=== PATIENT | female | born 1985 | race Caucasian/White ===

== ENCOUNTER 2022-11-11 10:30 | Inpatient (IN) | payer OTHER ==
[~2022-11-11] VITALS: Ht 160 cm; Wt 98.0 kg
[2022-11-11] MEDS ORDERED: PRETAB PO (11:11)
[2022-11-11] MEDS ORDERED: LACTATED RINGERS 500 ML IV SCH (11:15)
[2022-11-11] MEDS ORDERED: LACTATED RINGERS 1,000 ML IV SCH (11:15)
[2022-11-11] MEDS ORDERED: METHYLERGONOVINE 0.2 MG/ML AMP IM PRN ×2 (11:15→13:05)
[2022-11-11] MEDS ORDERED: CARBOPROST 250 MCG/ML AMP IM PRN (11:15)
[2022-11-11 11:55] VITALS: BP 126/69
[2022-11-11 12:07] LABS: BASOPHILS % (AUTO) 0.1 % (0.0-2.0); EOSINOPHILS % (AUTO) 0.4 % (0.0-4.0); HEMATOCRIT 37.6 % (36-48); HEMOGLOBIN 13.2 g/dL (12.0-16.0); LYMPHOCYTES # (AUTO) 1.3 K/uL (2.5-16.5); LYMPHOCYTES % (AUTO) 15.2 % (20.5-51.1); MEAN CORPUSCULAR HEMOGLOBIN 32 pg (27-31); MEAN CORPUSCULAR HGB CONC 35 g/dL (33-37); MEAN CORPUSCULAR VOLUME 90.6 fL (80-94); MONOCYTES # (AUTO) 0.6 K/uL (0.8-1.0); MONOCYTES % (AUTO) 7.3 % (1.7-9.3); NEUTROPHILS # (AUTO) 6.5 K/uL (1.8-7.7); PLATELET COUNT (AUTO) 146 K/uL (140-450); RED BLOOD CELL COUNT(AUTO) 4.15 MIL/uL (4.20-5.40); RED CELL DISTRIBUTION WIDTH 13.7 % (11.6-13.7); WHITE BLOOD COUNT (AUTO) 8.4 K/uL (4.8-10.8)
[2022-11-11] MEDS ORDERED: fentaNYL citrate 0.05 MG/ML VIAL ONE (12:10)
[2022-11-11] MEDS ORDERED: MORPHINE PRES FREE 10 MG/10 ML AMP IV ONE (12:10)
[2022-11-11 12:12] LABS: APPEARANCE,URINE CLEAR (CLEAR); BILIRUBIN,URINE NEGATIVE (NEGATIVE); BLOOD, URINE NEGATIVE (NEGATIVE); COLOR,URINE YELLOW (YELLOW); LEUKOCYTE ESTERASE ,URINE TRACE (NEGATIVE); NITRITE, URINE NEGATIVE (NEGATIVE); UGLUCOSE NEGATIVE (NEGATIVE)
[2022-11-11 12:27] LABS: ALBUMIN 3.1 g/dL (3.4-5.0); ANION GAP 14.2 (8-16); CARBON DIOXIDE 23.6 mmol/L (21-32); CREATININE 0.6 mg/dL (0.6-1.3); POTASSIUM 3.8 mmol/L (3.5-5.1); TOTAL BILIRUBIN 0.5 mg/dL (0.0-1.0)
[2022-11-11 12:33] LABS: PROTHROMBIN TIME 8.9 secs (10.8-13.4)
[2022-11-11] MEDS ORDERED: KETOROLAC 30 MG/ML VIAL IVP PRN (13:05)
[2022-11-11] MEDS ORDERED: oxyCODONE/APAP 5/325 MG 1 TAB TAB PO PRN ×2 (13:05)
[2022-11-11] MEDS ORDERED: TEMAZEPAM 15 MG CAP PO PRN (13:05)
[2022-11-11] MEDS ORDERED: MISOPROSTOL 200 MCG TAB ONE (13:07)
[2022-11-11] MEDS ORDERED: OXYTOCIN 20 UNITS/LR PREMIX 1,000 ML IV ONE ×2 (13:44→18:14)
[2022-11-11] MEDS ORDERED: diphenhydrAMINE 50 MG/ML VIAL IVP PRN ×2 (13:45)
[2022-11-11] MEDS ORDERED: NALOXONE 0.4 MG/ML VIAL IVP PRN ×3 (13:45)
[2022-11-11] MEDS ORDERED: KETOROLAC 60 MG/2 ML VIAL IM PRN (13:45)
[2022-11-11] MEDS ORDERED: ONDANSETRON 4 MG/2 ML VIAL IVP PRN (13:45)
--- NOTE | 2022-11-11 13:48 | NUR ---
Attended delivery - baby came out crying - no distress noted - nurse present for scoring - minimal stimulation needed.
--- NOTE | 2022-11-11 16:51 | NUR ---
PATIENT HAS BEEN SCREENED AND CATEGORIZED LOW NUTRITION RISK. PATIENT WILL BE SEEN WITHIN 7 DAYS OF ADMISSION. 11/18/22 REVIEWED BY ENEIDA [address]
[2022-11-11] MEDS: OXYTOCIN 20 UNITS in LACTATED RINGERS 1,000 ML IV SCH (18:31)
[2022-11-11] MEDS: DOCUSATE SOD/SENNA 50/8.6 MG 1 TAB PO SCH (21:00)
[2022-11-12] MEDS ORDERED: OXYTOCIN 20 UNITS/LR PREMIX 1,000 ML IV ONE ×2 (01:33→09:33)
[2022-11-12] MEDS: OXYTOCIN 20 UNITS in LACTATED RINGERS 1,000 ML IV SCH ×2 (01:37→09:44)
[2022-11-12 07:25] LABS: BASOPHILS % (AUTO) 0.1 % (0.0-2.0); EOSINOPHILS % (AUTO) 0.4 % (0.0-4.0); HEMATOCRIT 34.6 % (36-48); LYMPHOCYTES % (AUTO) 8.2 % (20.5-51.1); MEAN CORPUSCULAR HEMOGLOBIN 32 pg (27-31); MEAN CORPUSCULAR HGB CONC 35 g/dL (33-37); MEAN CORPUSCULAR VOLUME 92.5 fL (80-94); NEUTROPHILS # (AUTO) 10.3 K/uL (1.8-7.7); NEUTROPHILS % (AUTO) 83.3 % (42.2-75.2); PLATELET COUNT (AUTO) 134 K/uL (140-450); RED BLOOD CELL COUNT(AUTO) 3.74 MIL/uL (4.20-5.40); RED CELL DISTRIBUTION WIDTH 14.1 % (11.6-13.7); WHITE BLOOD COUNT (AUTO) 12.4 K/uL (4.8-10.8)
[2022-11-12] MEDS: IBUPROFEN 800 MG TAB PO PRN ×2 (08:51→18:41)
[2022-11-12] MEDS: SIMETHICONE 80 MG TAB.CHEW PO PRN ×3 (08:52→18:41)
[2022-11-12] MEDS: DOCUSATE SOD/SENNA 50/8.6 MG 1 TAB PO SCH (22:16)
[2022-11-13] MEDS: IBUPROFEN 800 MG TAB PO PRN ×3 (03:57→14:59)
[2022-11-13] MEDS: SIMETHICONE 80 MG TAB.CHEW PO PRN ×3 (03:58→15:48)
== END 2022-11-13 17:30 | disposition home or self-care (01) | DRG 540 ==
LOC: MLD 10:30 → OBSVTOIN 11:26 → MFCC 14:00
PROVIDERS: ADMIT Obstetrics & Gynecology; ATTEND Obstetrics & Gynecology
PROC: 10D00Z1 Extraction of Products of Conception, Low, Open Approach (ICD-10-PCS; principal; 2022-11-11 13:30)
DX: O34.211 Maternal care for low transverse scar from previous cesarean delivery (principal); Z20.822 Contact with and (suspected) exposure to COVID-19; Z37.0 Single live birth; Z3A.39 39 weeks gestation of pregnancy
CPT/HCPCS: 36415; 51702; 80053; 81003; 85025; 85610; 85730; 86592; 86886; 86900; 86901; J0690; J0696; J1200; J2270; J2405; J2590; J3010; J7060; J7120